=== PATIENT | female | born 1970 | race Caucasian/White ===

== ENCOUNTER 2016-09-02 00:46 | Inpatient (IN) | payer OTHER ==
[2016-09-02] VITALS (32 sets, daily range): BP systolic 85–155; BP diastolic 56–94
[~2016-09-02] VITALS: Ht 162.6 cm; Wt 63.9 kg
--- NOTE | ~2016-09-02 | EKG ---
[address] [address] ELECTROCARDIOGRAM REPORT Name: KATIE AMBRIZ Room #: 238-P [facility] M..#: [id number] Admission: 09/02/16 Attend Phys: Tino Ayers MD Discharge: Date of : 66 Report #: [id number] THIS REPORT FOR: //name// [facility] ED Test Date: 2016-09-02 Test Time: 01:04:28 Pat Name: KATIE AMBRIZ Department: Room: 238 Gender: F [employer] Estate Management Specialist: [id number] : 1970 Requested By: Leo Morris Order Number: [id number] MD: Chu Webber Measurements Intervals [place] Rate: 87 P: 62 W[place]: 136 QRS: 58 QRSD: 89 T: 43 QT: 414 QTc: 498 Interpretive Statements Sinus rhythm Borderline prolonged QT interval Baseline wander in lead(s) V1 No previous ECG available for comparison Electronically Signed On 09-03-2016 13:55:41 CDT by Chu Webber [email or web address] <ELECTRONICALLY SIGNED> By: Chu Webber MD, [facility] 09/03/16 1355 D: 05/103 010 Chu Webber MD, FACC /EPI
[2016-09-02 01:19] LABS: HEMATOCRIT 37.3 % (37.0-47.0); MCHC 34.8 g/dL (28.0-37.0); MCV 94.7 fL (80.0-100.0); RBC 3.94 mil/uL (4.20-5.00); RDW 12.3 % (10.5-14.5); WBC 6.7 thou/uL (4.0-11.0)
[2016-09-02 01:25] LABS: ANION GAP 7 mmol/L (7-16); BUN 10 mg/dL (7-18); CALCIUM 8.6 mg/dL (8.5-10.1); CHLORIDE 108 mmol/L (98-107); CO2 29 mmol/L (21-32); CREATININE 0.7 mg/dL (0.6-1.0); GLUCOSE 93 mg/dL (74-106); POTASSIUM 3.8 mmol/L (3.5-5.1); SODIUM 144 mmol/L (136-145)
[2016-09-02 01:28] LABS: SALICYLATE < 2.8 mg/dL (2.8-20.0)
[2016-09-02 01:29] LABS: ACETAMINOPHEN < 2 ug/mL (10-30)
[2016-09-02] MEDS ORDERED: SERTRALINE HCL50 MG PO (01:45)
[2016-09-02] MEDS ORDERED: AMPHETAMINE SAL10 MG PO (01:45)
[2016-09-02] MEDS ORDERED: TRAZODONE HCL50 MG PO (01:46)
[2016-09-02 02:25] LABS: URINE BILIRUBIN NEGATIVE (Negative); URINE BLOOD NEGATIVE (Negative); URINE COLOR YELLOW; URINE GLUCOSE-RANDOM* NEGATIVE (Negative); URINE KETONES NEGATIVE (Negative); URINE LEUKOCYTES-REFLEX NEGATIVE (Negative); URINE PROTEIN (DIPSTICK) NEGATIVE (Negative); URINE SPECIFIC GRAVITY <= 1.005 (1.003-1.035); URINE UROBILINOGEN 0.2 E.U./dl (0.2-1.0)
[2016-09-02 02:29] LABS: AMP/METHAMP POSITIVE (Negative); BARBITURATES Negative (Negative); BENZODIAZEPINES Negative (Negative); COCAINE Negative (Negative); METHADONE Negative (Negative); OPIATES Negative (Negative); PCP Negative (Negative); THC Negative (Negative)
[2016-09-02 04:30] LABS: MAGNESIUM 1.9 mg/dL (1.8-2.4); PHOSPHORUS 4.7 mg/dL (2.5-4.9)
[2016-09-02 04:58] LABS: FOLIC ACID 9.7 ng/mL (8.6-58.9)
[2016-09-02 08:26] LABS: ALBUMIN 3.8 g/dL (3.4-5.0); ALKALINE PHOSPHATASE 79 U/L (46-116); SGOT 22 U/L (15-37); SGPT 21 U/L (30-65); TOTAL PROTEIN 6.9 g/dL (6.4-8.2)
[2016-09-02 08:38] LABS: TOTAL BILIRUBIN 0.1 mg/dL (<0.1-1.0)
[2016-09-02 12:06] LABS: FREE T4 1.47 ng/dL (0.82-1.77)
[2016-09-03] VITALS (14 sets, daily range): BP systolic 106–166; BP diastolic 72–98
[2016-09-03 04:38] LABS: HEMATOCRIT 35.6 % (37.0-47.0); HEMOGLOBIN 12.1 gm/dL (12.0-15.0); MCH 32.5 pg (26.0-34.0); MCHC 33.9 g/dL (28.0-37.0); MCV 95.7 fL (80.0-100.0); RBC 3.72 mil/uL (4.20-5.00); RDW 12.3 % (10.5-14.5); WBC 12.9 thou/uL (4.0-11.0)
[2016-09-03 04:45] LABS: CALCIUM 8.2 mg/dL (8.5-10.1); POTASSIUM 3.4 mmol/L (3.5-5.1)
[2016-09-04 03:00] VITALS: BP 123/80
[2016-09-04 04:30] LABS: CALCIUM 8.5 mg/dL (8.5-10.1); CREATININE 0.9 mg/dL (0.6-1.0); MAGNESIUM 1.8 mg/dL (1.8-2.4); PHOSPHORUS 3.5 mg/dL (2.5-4.9)
[2016-09-04 08:10] VITALS: BP 123/80
[2016-09-04 09:43] LABS: HEMATOCRIT 35.2 % (37.0-47.0); HEMOGLOBIN 12.2 gm/dL (12.0-15.0); MCHC 34.5 g/dL (28.0-37.0); MCV 95.4 fL (80.0-100.0); RBC 3.69 mil/uL (4.20-5.00); RDW 12.1 % (10.5-14.5); WBC 6.9 thou/uL (4.0-11.0)
[2016-09-04 20:00] VITALS: BP 134/88
[2016-09-05 08:00] VITALS: BP 107/68
[2016-09-05 19:00] VITALS: BP 144/88
[2016-09-06 06:00] VITALS: BP 122/70
[2016-09-06 08:17] VITALS: BP 106/64
[2016-09-06 12:05] VITALS: BP 115/79
[2016-09-06 19:07] LABS: TRICYCLIC (TCA) CONFIRMATION Negative ng/mL (Cutoff=100)
== END 2016-09-06 19:00 | DRG 918 ==
LOC: ER 00:46 → EROBS 01:36 → ICU 01:36
PROVIDERS: Emergency Medicine; Hospitalist; Nurse Practitioner Family
DX: T43.622A Poisoning by amphetamines, intentional self-harm, initial encounter (principal); F10.229 Alcohol dependence with intoxication, unspecified; F31.9 Bipolar disorder, unspecified; T43.222A Poisoning by selective serotonin reuptake inhibitors, intentional self-harm, initial encounter; T43.212A Poisoning by selective serotonin and norepinephrine reuptake inhibitors, intentional self-harm, initial encounter; F17.210 Nicotine dependence, cigarettes, uncomplicated; Y90.8 Blood alcohol level of 240 mg/100 ml or more; Z91.5 Personal history of self-harm; Z79.899 Other long term (current) drug therapy; Y92.810 Car as the place of occurrence of the external cause
CPT/HCPCS: 10078